=== PATIENT | female | born 1950 | race Caucasian/White ===

== ENCOUNTER 2017-07-07 10:24 | Day surgery (SDC) | payer OTHER ==
[2017-07-07 11:20] VITALS: BMI 32.2
[2017-07-07] MEDS ORDERED: PROPOFOL 20 ML ONE ×2 (12:39)
[2017-07-07 13:23] VITALS: TEMP 97.6
[2017-07-07 14:05] VITALS: BP 125/68; PULSE 66
--- NOTE | 2017-07-10 09:52 | PATH ---
Surgical Pathology Report Patient Name: GIORGIO PRAJAPATI [facility]. Rec. #: [id number] /Age/Gender: 1950 (Age: 66) / F Account: [id number] Location: [facility]-ENDOSCOPY Taken: 07/07/2017 Received: 07/07/2017 Reported: 07/10/2017 Physicians: Miguel Azar M.D. Specimen(s) Received BX RECTAL POLYPS Clinical History Adenoma surveillance, rectal bleeding Postoperative diagnosis: Rectal polyps, diverticulosis Final Diagnosis RECTUM, POLYPS, BIOPSY: HYPERPLASTIC POLYP(S). Electronically Signed Kristina Sykes M.D. Gross Description Received in formalin, labeled "biopsy rectal polyps" are 4 ochoa, irregular portions of soft tissue ranging from 0.1-0.7 cm. in greatest dimension. The specimens are submitted in toto in one cassette. /07/07/201707/07/2017
== END 2017-07-07 14:25 | disposition home or self-care (01) ==
LOC: JASU-ENDO 10:24
PROVIDERS: ATTEND Internal Medicine Gastroenterology
PROC: 0DBP8ZX Excision of Rectum, Via Natural or Artificial Opening Endoscopic, Diagnostic (ICD-10-PCS; principal; 2017-07-07 11:30)
DX: Z12.11 Encounter for screening for malignant neoplasm of colon (principal); Z86.010 Personal history of colon polyps; K62.1 Rectal polyp; K64.8 Other hemorrhoids; K57.30 Diverticulosis of large intestine without perforation or abscess without bleeding
CPT/HCPCS: 88305-TC

== ENCOUNTER 2023-10-10 05:15 | Day surgery (SDC) | payer OTHER, MEDICARE ==
[2023-10-09 09:47] VITALS: BMI 28.3
[2023-10-10 09:38] VITALS: TEMP 97.6
[2023-10-10 10:19] VITALS: RESP 20
[2023-10-10 10:20] VITALS: BP 142/69; PULSE 68
== END 2023-10-10 10:40 | disposition home or self-care (01) ==
LOC: JASU-ENDO 05:15
PROVIDERS: ATTEND Internal Medicine Gastroenterology
PROC: 0DB98ZX Excision of Duodenum, Via Natural or Artificial Opening Endoscopic, Diagnostic (ICD-10-PCS; 2023-10-10)
PROC: 0DB78ZX Excision of Stomach, Pylorus, Via Natural or Artificial Opening Endoscopic, Diagnostic (ICD-10-PCS; 2023-10-10)
PROC: 0DB68ZX Excision of Stomach, Via Natural or Artificial Opening Endoscopic, Diagnostic (ICD-10-PCS; 2023-10-10)
PROC: 0DB48ZX Excision of Esophagogastric Junction, Via Natural or Artificial Opening Endoscopic, Diagnostic (ICD-10-PCS; 2023-10-10)
PROC: 0DJD8ZZ Inspection of Lower Intestinal Tract, Via Natural or Artificial Opening Endoscopic (ICD-10-PCS; principal; 2023-10-10 09:00)
DX: Z12.11 Encounter for screening for malignant neoplasm of colon (principal); K57.30 Diverticulosis of large intestine without perforation or abscess without bleeding; K64.8 Other hemorrhoids; K21.00 Gastro-esophageal reflux disease with esophagitis, without bleeding; K44.9 Diaphragmatic hernia without obstruction or gangrene; K29.50 Unspecified chronic gastritis without bleeding; K31.7 Polyp of stomach and duodenum
CPT/HCPCS: 43239; G0105; 88305-TC; 88342-TC